=== PATIENT | male | born 1980 | race Caucasian/White ===

== ENCOUNTER 2021-04-13 19:12 | Emergency (ER) | payer OTHER ==
[~2021-04-13] VITALS: Ht 170.2 cm; Wt 86.2 kg
[2021-04-13 21:40] LABS: ABSOLUTE BASOPHILS 0.1 thou/uL (0.0-0.2); ABSOLUTE EOSINOPHILS 0.2 thou/uL (0.0-0.7); ABSOLUTE MONOCYTES 0.7 thou/uL (0.0-1.2); ABSOLUTE NEUTROPHILS 6.6 thou/uL (1.6-8.1); BASOPHILS 1.1 %; EOSINOPHILS 1.8 %; HEMATOCRIT 42.4 % (42.0-52.0); HEMOGLOBIN 14.7 gm/dL (14.0-18.0); LYMPHOCYTES 21.1 %; MCHC 34.6 g/dL (28.0-37.0); MCV 101.2 fL (80.0-100.0); MONOCYTES 7.1 %; MPV 9.6 fl. (7.2-11.1); NUCLEATED RBCS 0 /100WBC; PLATELET COUNT* 206 thou/uL (150-400); POLYS 68.9 %; RBC 4.19 mil/uL (4.50-6.00); RDW-CV 13.4 % (10.5-14.5); WBC 9.6 thou/uL (4.0-11.0)
[2021-04-13 21:54] LABS: CALCIUM 8.8 mg/dL (8.5-10.1); POTASSIUM 3.6 mmol/L (3.5-5.1)
[2021-04-13 21:58] LABS: ALBUMIN 3.5 g/dL (3.4-5.0); TOTAL BILIRUBIN 0.4 mg/dL (<0.1-1.0); TOTAL PROTEIN 6.6 g/dL (6.4-8.2)
[2021-04-13 23:30] VITALS: BP 125/85
== END 2021-04-13 23:33 | disposition home or self-care (01) ==
LOC: M.ERS 19:12
PROVIDERS: Nurse Practitioner Family
DX: K62.5 Hemorrhage of anus and rectum (principal); Z88.0 Allergy status to penicillin